=== PATIENT | male | born 1960 | race Caucasian/White ===

== ENCOUNTER 2022-01-27 14:46 | Inpatient (IN) ==
[2022-01-27 17:08] LABS: Basophils % 0.4 % (0.0-0.8); Eosinophils # 0.5 10*3/uL (0.0-0.87); Eosinophils % 4.4 % (0.00-10.9); Hematocrit 40.5 VOL% (42.0-52.0); Hemoglobin 13.7 GM/DL (14.0-18.0); Immature Granulocytes % 0.7 %; Immature Granulocytes Absolute 0.07 #; Lymphocytes # 2.1 10*3/uL (1.4-4.0); Lymphocytes % 19.8 % (21.2-54.2); Mean Corpuscular HGB Conc 33.8 GM/DL (32-36); Mean Corpuscular Volume 91.6 FL (87-102); Mean Platelet Volume 10.8 FL (9.6-12.0); Monocytes % 8.9 % (1.7-12.7); Neutrophils % 65.8 % (38.7-73.9); Platelet Count 168 T/CUMM (130-400); Red Blood Count 4.42 MC/CUMM (3.8-5.5); Red Cell Distribution Width 13.3 % (9.3-17.3); White Blood Count 10.5 T/CUMM (4-12)
[2022-01-27 17:22] LABS: Albumin 3.3 G/DL (3.4-5.0); Bilirubin,Total 0.8 MG/DL (0.20-1.00); Calcium 9.1 MG/DL (8.5-10.1); Osmolality,Calculated 273.1 MOS/KG (273-304); Potassium 3.1 MMOL/L (3.5-5.1); Total Protein 8.1 G/DL (6.4-8.2)
[2022-01-27] MEDS ORDERED: diphenhydrAMINE CAP 25 MG CAPSULE PO PRN (18:10)
[2022-01-27] MEDS ORDERED: MORPHINE 2 MG/1 ML SYRINGE IV PRN (18:10)
[2022-01-27] MEDS ORDERED: NICOTINE 21 MG/24 HR PATCH TRANSDERM PRN (18:10)
[2022-01-27] MEDS ORDERED: GLUCAGON 1 MG VIAL IM PRN (18:10)
[2022-01-27] MEDS ORDERED: ZALEPLON 5 MG CAPSULE PO PRN (18:10)
[2022-01-27] MEDS ORDERED: ACETAMINOPHEN 325 MG TABLET PO PRN (18:10)
[2022-01-27] MEDS ORDERED: PROMETHAZINE 25 MG/1 ML VIAL IM PRN (18:10)
[2022-01-27] MEDS ORDERED: ONDANSETRON 4 MG/2 ML VIAL IV PRN (18:10)
[2022-01-27] MEDS ORDERED: hydrALAZINE 20 MG/1 ML VIAL IV PRN (18:10)
[2022-01-27] MEDS ORDERED: guaiFENesin/DM ER 600-30 MG TABLET PO PRN (18:10)
[2022-01-27] MEDS ORDERED: DEXTROSE 10% 250 ML BAG IV PRN (18:28)
[2022-01-27] MEDS: DEXT 5% NACL 0.9% KCL 40 MEQ 40 MEQ/1,000 ML BAG IV SCH (19:34)
[2022-01-27] MEDS: ENOXAPARIN 40 MG/0.4 ML SYRINGE SUBCUT SCH (19:35)
[2022-01-27 21:31] LABS: Hyaline Casts,Urine 1 /LPF (0-3); Mucus,Urine Occasional /LPF (Occasional); RBC,Urine 9 /HPF (0-4); Squamous Epithelial Cell,Urine Occasional /HPF (0-10)
[2022-01-27 21:33] LABS: Protein,Urine 30 MG/DL; Urine Appearance Clear (Clear); Urine Color Yellow (Yellow)
[2022-01-27 21:34] LABS: Bilirubin,Urine Small mg/dL (Negative); Blood, Urine Negative (Negative); Glucose,Urine (UA) Negative (Negative); Ketones,Urine 15 mg/dL (Negative); Nitrite,Urine Negative (Negative); Urine Urobilinogen 0.2 EU/DL (<2.0)
[2022-01-28 05:40] LABS: Basophils % 0.5 % (0.0-0.8); Eosinophils # 0.5 10*3/uL (0.0-0.87); Eosinophils % 7.6 % (0.00-10.9); Hematocrit 38.1 VOL% (42.0-52.0); Hemoglobin 12.5 GM/DL (14.0-18.0); Immature Granulocytes % 0.8 %; Immature Granulocytes Absolute 0.05 #; Lymphocytes # 1.6 10*3/uL (1.4-4.0); Lymphocytes % 25.1 % (21.2-54.2); Mean Corpuscular HGB Conc 32.8 GM/DL (32-36); Mean Corpuscular Volume 93.2 FL (87-102); Monocytes % 9.9 % (1.7-12.7); Neutrophils % 56.1 % (38.7-73.9); Platelet Count 144 T/CUMM (130-400); Red Blood Count 4.09 MC/CUMM (3.8-5.5); Red Cell Distribution Width 13.7 % (9.3-17.3); White Blood Count 6.2 T/CUMM (4-12)
[2022-01-28 05:47] LABS: Albumin 2.9 G/DL (3.4-5.0); Bilirubin,Total 0.8 MG/DL (0.20-1.00); Calcium 8.4 MG/DL (8.5-10.1); Osmolality,Calculated 281.4 MOS/KG (273-304); Potassium 3.9 MMOL/L (3.5-5.1); Total Protein 7.1 G/DL (6.4-8.2)
[2022-01-28] MEDS: DEXT 5% NACL 0.9% KCL 40 MEQ 40 MEQ/1,000 ML BAG IV SCH ×2 (06:22→23:35)
[2022-01-28 06:27] LABS: Hepatitis B Core IgM Quant 0.18 Index; Hepatitis B Surface Ag Quant < 0.10 Index; Hepatitis B Surface Ag Result Non-Reactive (NonReactive); Hepatitis C Virus Ab Quant > 11.00 Index; Hepatitis C Virus Ab Result Reactive (NonReactive)
[2022-01-28] MEDS ORDERED: INFLUENZA VIRUS VACCINE 0.5 ML SYRINGE IM ONE (09:00)
[2022-01-28] MEDS ORDERED: PNEUMOCOCCAL VACCINE (23 VALENT) 0.5 ML VIAL IM ONE (09:00)
[2022-01-28] MEDS: ENOXAPARIN 40 MG/0.4 ML SYRINGE SUBCUT SCH (21:51)
[2022-01-29] MEDS: DEXT 5% NACL 0.9% KCL 40 MEQ 40 MEQ/1,000 ML BAG IV SCH ×3 (00:12→23:50)
[2022-01-29] MEDS: ENOXAPARIN 40 MG/0.4 ML SYRINGE SUBCUT SCH (20:58)
[2022-01-30 05:00] LABS: Basophils % 0.6 % (0.0-0.8); Eosinophils # 0.4 10*3/uL (0.0-0.87); Eosinophils % 7.6 % (0.00-10.9); Hematocrit 36.6 VOL% (42.0-52.0); Hemoglobin 12.2 GM/DL (14.0-18.0); Immature Granulocytes % 0.4 %; Immature Granulocytes Absolute 0.02 #; Lymphocytes # 1.2 10*3/uL (1.4-4.0); Lymphocytes % 26.8 % (21.2-54.2); Mean Corpuscular HGB Conc 33.3 GM/DL (32-36); Mean Platelet Volume 10.3 FL (9.6-12.0); Monocytes % 9.3 % (1.7-12.7); Neutrophils % 55.3 % (38.7-73.9); Platelet Count 118 T/CUMM (130-400); Red Blood Count 4.02 MC/CUMM (3.8-5.5); Red Cell Distribution Width 13.8 % (9.3-17.3); White Blood Count 4.6 T/CUMM (4-12)
[2022-01-30 05:21] LABS: Albumin 2.9 G/DL (3.4-5.0); Bilirubin,Total 1.1 MG/DL (0.20-1.00); Calcium 8.3 MG/DL (8.5-10.1); Osmolality,Calculated 277.4 MOS/KG (273-304)
[2022-01-30 05:54] LABS: Macrocytosis 1+
[2022-01-30 05:55] LABS: Platelet Estimate Decreased
[2022-01-30] MEDS ORDERED: MAGNESIUM SULF RIDER 2 GM/50 ML PREMIX IV ONE (07:11)
[2022-01-30] MEDS: SPIRONOLACTONE 50 MG TABLET PO SCH (16:43)
[2022-01-30] MEDS: DEXT 5% NACL 0.9% KCL 40 MEQ 40 MEQ/1,000 ML BAG IV SCH (21:18)
[2022-01-30] MEDS: ENOXAPARIN 40 MG/0.4 ML SYRINGE SUBCUT SCH (21:19)
[2022-01-31 05:36] LABS: Basophils # 0.1 10*3/uL (0.0-0.2); Basophils % 0.8 % (0.0-0.8); Eosinophils # 0.6 10*3/uL (0.0-0.87); Eosinophils % 7.9 % (0.00-10.9); Hematocrit 43.5 VOL% (42.0-52.0); Hemoglobin 14.4 GM/DL (14.0-18.0); Immature Granulocytes % 0.5 %; Immature Granulocytes Absolute 0.04 #; Lymphocytes # 2.2 10*3/uL (1.4-4.0); Lymphocytes % 28.1 % (21.2-54.2); Mean Corpuscular HGB Conc 33.1 GM/DL (32-36); Mean Corpuscular Volume 92.6 FL (87-102); Mean Platelet Volume 10.8 FL (9.6-12.0); Monocytes % 8.2 % (1.7-12.7); Neutrophils % 54.5 % (38.7-73.9); Platelet Count 170 T/CUMM (130-400); Red Cell Distribution Width 14.3 % (9.3-17.3); White Blood Count 7.8 T/CUMM (4-12)
[2022-01-31 05:59] LABS: Albumin 3.7 G/DL (3.4-5.0); Bilirubin,Total 0.7 MG/DL (0.20-1.00); Calcium 9.4 MG/DL (8.5-10.1); Osmolality,Calculated 276.4 MOS/KG (273-304); Potassium 4.2 MMOL/L (3.5-5.1); Total Protein 8.6 G/DL (6.4-8.2)
[2022-01-31] MEDS: SPIRONOLACTONE 50 MG TABLET PO SCH (09:28)
[2022-01-31 11:00] VITALS: BP 117/76
== END 2022-01-31 14:12 | DRG 249 ==
LOC: EDBD → EDUNIT# → N.ED 14:46 → SUATTDRO 18:10 → N.EDINP 18:10 → N.5E 21:31
PROVIDERS: ADMIT Internal Medicine; ATTEND Internal Medicine